=== PATIENT | male | born 1950 | race Caucasian/White ===

== ENCOUNTER 2018-02-01 14:49 | Observation (INO) | payer MEDICARE, OTHER ==
--- NOTE | 2018-02-01 14:56 | PDOC ---
Rapid Medical Evaluation Time Seen by Provider: 02/01/18 14:52 Medical Evaluation: Allergies Allergy/AdvReac Type Severity Reaction Status Date / Time No Known Allergies Allergy Verified 09/12/17 11:03 02/01/18 14:53 I have performed a brief in-person evaluation of this patient. The patient presents with a chief complaint of:R sided numbness/weakness w/ difficulty ambulating x 2 weeks. Thinks he had a stroke but decided not to come to ED for unclear reason. [facility] SW visited apt and decided to bring pt in. H /o thalamic hemorrhagic CVA in 2017, improved w/ CRYSTAL, HTN, ?ETOH abuse Pertinent physical exam findings:Tachy to 122 w/ ? R hand tremor (last etoh use 2 weeks ago per pt) I have ordered the following:labs/CT head The patient will proceed to the ED for further evaluation.
[2018-02-01 14:57] VITALS: BMI 24.2
[2018-02-01 16:04] LABS: BASO % 0.7 % (0-2.0); EOS % 1.6 % (0-4.5); HEMATOCRIT 34.7 % (35.4-49); LYMPH % 23.1 % (8-40); MCH 35.2 pg (25.7-33.7); MCHC 34.5 g/dl (32.0-35.9); MEAN CELL VOLUME 102.2 fl (80-96); MEAN PLT VOLUME 8.2 fl (7.5-11.1); MONO % 10.8 % (3.8-10.2); NEUT % 63.8 % (42.8-82.8); PLATELET COUNT 217 K/MM3 (134-434); RBC 3.39 M/mm3 (4.00-5.60); RDW 14.9 % (11.9-15.9); WHITE BLOOD COUNT 5.3 K/mm3 (4.0-10.0)
[2018-02-01 16:36] LABS: ALBUMIN 3.9 g/dl (3.4-5.0); ANION GAP 7 (8-16); BLOOD UREA NITROGEN 15 mg/dL (7-18); CALCIUM 9.3 mg/dL (8.5-10.1); CHLORIDE 98 mmol/L (98-107); CO2 28 mmol/L (21-32); CREATININE 1.1 mg/dL (0.7-1.3); GLUCOSE,RANDOM 116 mg/dL (74-106); POTASSIUM 4.4 mmol/L (3.5-5.1); SGOT/AST 47 U/L (15-37); SGPT/ALT 49 U/L (12-78); SODIUM 133 mmol/L (136-145)
[2018-02-01 16:40] LABS: ALK PHOS 77 U/L (45-117); BILIRUBIN,TOTAL 0.7 mg/dL (0.2-1.0); TOT PROT 6.9 g/dl (6.4-8.2)
--- NOTE | 2018-02-01 17:02 | PDOC ---
History of Present Illness - General Chief Complaint: Weakness Stated Complaint: RT SIDE NUMBNESS/WEAKNESS X2 WEEKS Time Seen by Provider: 02/01/18 14:52 - History of Present Illness Initial Comments: 67 year old male with PMH of HTN, EtoH, abuse and CVA (hemorrhagic left sided stroke in 09/23, s/p rehab with good r sided deficit recovery) prsenting with new right sided weakness s/p fall a few days prior. He is unclear on the history of his symptoms but believes that he experienced an acute right lower extremity weakness on Tuesday and fell to the floor. States that he has had resolving RU RL and facial numbness/ weakness that has been resolving since the incident. States that his last drink was three days prior and drinks every three days. Denies fevers, chills, nausea, vomiting, diarrhea, constipation, or other symptoms. 02/01/18 16:44 Past History - Past Medical History Allergies/Adverse Reactions: Allergies Allergy/AdvReac Type Severity Reaction Status Date / Time No Known Allergies Allergy Verified 02/01/18 14:57 Home Medications: Ambulatory Orders Aspirin 81 mg PO DAILY 02/01/18 COPD: No DVT: No HTN: Yes - Suicide/Smoking/Psychosocial Hx Smoking History: Never smoked Have you smoked in the past 12 months: No If you are a former smoker, when did you quit?: 1996 Information on smoking cessation initiated: No Hx Alcohol Use: No Drug/Substance Use Hx: No Substance Use Type: Alcohol Review of Systems - Review of Systems Constitutional: No: Chills, Diaphoresis, Fever HEENTM: No: Blurred Vision, Tearing Respiratory: No: Cough, Orthopnea, Shortness of Breath Cardiac (ROS): No: Chest Pain, Edema, Irregular Heart Rate ABD/GI: No: Diarrhea, Difficulty Swallowing, Nausea, Vomiting : No: Burning, Dysuria Integumentary: Yes: Lesions, Lumps Neurological: Yes: Numbness, Paresthesia, Weakness, Unsteady Gait. No: Headache *Physical Exam - Vital Signs Last Vital Signs Temp Pulse Resp BP Pulse Ox 98.2 F 122 H 18 144/95 99 02/01/18 14:53 02/01/18 14:53 02/01/18 14:53 02/01/18 14:53 02/01/18 14:53 - Physical Exam General Appearance: Yes: Nourished, Appropriately Dressed. No: Apparent Distress HEENT: positive: EOMI, RATNA, Normal ENT Inspection, Normal Voice Neck: positive: Trachea midline, Normal Thyroid, Supple. negative: Tender, Rigid Respiratory/Chest: positive: Lungs Clear, Normal Breath Sounds. negative: Chest Tender, Respiratory Distress, Accessory Muscle Use Cardiovascular: positive: Regular Rhythm, Tachycardia. negative: Regular Rate Gastrointestinal/Abdominal: positive: Normal Bowel Sounds, Flat, Soft. negative : Tender Musculoskeletal: positive: Other (4/5 strengith in rue and rle with slight paresthesias in same areas and right side of his face. ). negative: Normal Inspection, CVA Tenderness Extremity: positive: Normal Capillary Refill, Normal Inspection, Normal Range of Motion. negative: Tender Integumentary: positive: Normal Color, Dry, Other (small abrasions on face and UEs that are well healing.) Neurologic: positive: assembler body II-XII NML intact, Fully Oriented, Alert, Normal Mood/ Affect, Normal Response. negative: Motor Strength 5/5 (per above) ED Treatment Course - LABORATORY CBC & Chemistry Diagram: 02/01/18 15:46 02/01/18 15:46 - ADDITIONAL ORDERS Additional order review: 02/01/18 15:46 RBC 3.39 L MCV 102.2 H MCHC 34.5 RDW 14.9 D MPV 8.2 Neutrophils % 63.8 Lymphocytes % 23.1 D Monocytes % 10.8 H Eosinophils % 1.6 Basophils % 0.7 Medical Decision Making - Medical Decision Making 67 year old male with PMH of stroke presenting with new R sided deficits and CT positive for new but noted as "chronic" right capsular changes on CT. Spoke to Dr. Bridges and WINSTON Gonzalez so will admit under obs tele for further cardiac and neurology workup. This is likely related to poor BP control and/ or arrythmia given tachycardia in ED. Repeat vitals were BP 134/ 75 and HR 85 without intervention. 02/01/18 18:03 *DC/Admit/Observation/Transfer Diagnosis at time of Disposition: Neurological deficit present - Discharge Dispostion Disposition: HOME Condition at time of disposition: Stable Admit: Yes - Referrals - Patient Instructions - Post Discharge Activity
[2018-02-01] MEDS ORDERED: DIPHTH,PERTUSS(ACELL),TET 0.5 ML DISP.SYRIN IM ONE (17:23)
[2018-02-01] MEDS ORDERED: THIAMINE HCL 200 MG/2 ML VIAL IVPB ONE (17:24)
[2018-02-01] MEDS ORDERED: FOLIC ACID 1 MG TABLET (FP) PO ONE (17:24)
[2018-02-01] MEDS ORDERED: MULTIVITAMINS (DAILY MVI) TABLET (FP) PO ONE (17:24)
[2018-02-01] MEDS ORDERED: SODIUM CHLORIDE 0.9% 1000 ML INFUS.BAG IV ONE (17:26)
--- NOTE | 2018-02-01 17:37 | PDOC ---
Attending Attestation - HPI HPI: 02/01/18 17:54 The patient is a 68 year old male who arrived via EMS, with a significant past medical history of HTN, who presents to the emergency department complaining of right sided weakness since this morning. He notes that he began to have right sided weakness that included his face, right upper extremity and right lower extremity. He reports that he fell on 01/29/18 on his right side but decided against coming to the hospital at that time. He notes that he took 2 aspirin tablets today prior to presentation. The patient notes that he has been noncompliant with his medications for the past couple of months. He also reports shortness of breath associated with his chief complaint, specially when he walks short distances. The patient denies chest pain, headache or dizziness. Denies fever, chills, nausea, vomiting, diarrhea and constipation. Denies dysuria, frequency, urgency and hematuria. Allergies: None Past surgical history: None reported Social History: Alcohol use (3 times a week). No tobacco or drug use reported. - Physicial Exam PE: 02/01/18 17:55 GENERAL: Awake, alert, and fully oriented, in no acute distress HEAD: No signs of trauma, normocephalic, atraumatic EYES: PERRLA, EOMI, sclera anicteric, conjunctiva clear ENT: Auricles normal inspection, hearing grossly normal, nares patent, oropharynx clear without exudates. Moist mucosa NECK: Normal ROM, supple, no lymphadenopathy, JVD, or masses LUNGS: No distress, speaks full sentences, clear to auscultation bilaterally HEART: Regular rate and rhythm, normal S1 and S2, no murmurs, rubs or gallops, peripheral pulses normal and equal bilaterally. ABDOMEN: Soft, nontender, normoactive bowel sounds. No guarding, no rebound. No masses EXTREMITIES : Normal inspection, Normal range of motion, no edema. No clubbing or cyanosis. NEUROLOGICAL: Cranial nerves II through XII grossly intact. Normal speech. (+) Decreased sensation on the right side, 4/5 strength. SKIN: Warm, Dry, normal turgor, no rashes or lesions noted <Davian Russ - Last Filed: 02/01/18 17:54> - Resident Resident Name: Soraida Lehman - ED Attending Attestation I have performed the following: I have examined & evaluated the patient, The case was reviewed & discussed with the resident, I agree w/resident's findings & plan, Exceptions are as noted - Medical Decision Making 02/01/18 17:30 I, Dr. Allie Richards, DO, attest that this document has been prepared under my direction and personally reviewed by me in its entirety. I further attest, that it accurately reflects all work, treatment, procedures and medical decision -making performed by me. 02/01/18 17:30 a/p: 67yo male with R sided weakness that started tuesday-tuesday night -states he got up from the couch and fell onto his R side - had acute onset of R sided weakness which has since improved -pt c/o paresthesias and numbness to R face, R arm, R leg -pt denies cp -C/o SOB -noncompliant with meds -admits to ETOH use 3x/week -admits to tobacco use -hx of hemorrhagic cva in september 2017 with R sided weakness at that time -concern for cva again -will obtain ct head/c spine -xray R shoulder -abrasion to R forehead, R leg - will update tetanus -will obtain cxr -pt is mildly tremulous - will give thiamine/folate/mvi -will electronic device monitor -will discuss with neurology -will most likely admit for neuro workup/cva workup -?alcohol use/noncompliance/tremors from etoh withdrawal 02/01/18 21:16 will keep pt in obs for neuro eval accepted by [facility] <Allie Richards - Last Filed: 02/01/18 21:17> Heart Score/ECG Review - ECG Intrepretation Comment:: 02/01/18 17:39 sinus tach at 105, poor r wave progression, nl axis, abnl ekg <Allie Richards - Last Filed: 02/01/18 21:17>
[2018-02-01] MEDS ORDERED: THIAMINE HCL 200 MG/2 ML VIAL ONE (19:09)
[2018-02-01 19:20] LABS: INR 0.96 (0.82-1.09); PROTHROMBIN TIME (PATIENT) 10.9 SEC (9.98-11.88)
[2018-02-01 19:23] LABS: ACTIVATED PTT 31.9 SECONDS (26.9-34.4)
[2018-02-01] MEDS ORDERED: FOLIC ACID 1 MG TABLET (FP) ONE (19:33)
[2018-02-01] MEDS ORDERED: GABAPENTIN 300 MG CAPSULE (FP) PO ONE (20:30)
--- NOTE | 2018-02-01 20:43 | HP ---
CHIEF COMPLAINT: right sided weakness PCP: none HISTORY OF PRESENT ILLNESS: This is a 67 year old male with a past medical history of hemorrhagic CVA 2016, HTN, ETOH who presented with worsened right sided weakness that began after a fall on Tuesday. He states that the weakness has gotten better since Tuesday but is persistent. He also reports some numbness and tingling in his right hand. Pt had a recent hemorrhagic CVA in September with Right titi s/p rehab at [facility] and then [facility]. He states that the hemiparesis had resolved after rehab but has now returned since his fall ER course was notable for: (1) CT head without acute findings (2) CT c spine with spondylosis and stenosis (3) Recent Travel: pt denies PAST MEDICAL HISTORY: HTN, EtOH, CVA PAST SURGICAL HISTORY: tonsillectomy and B/L hernia repairs as a child Social History: Smoking: quit 22 years ago, previous 1.5ppd Alcohol: 3x/week, 1 pint, last drank tuesday or Tuesday Drugs: pt denies Family History: mother age 84, CVA father in his 60s, murder 1 sister in her 50s, [place] Allergies No Known Allergies Allergy (Verified 02/01/18 14:57) HOME MEDICATIONS: 3 Medication Instructions Recorded Aspirin 81 mg PO DAILY 02/01/18 REVIEW OF SYSTEMS CONSTITUTIONAL: Absent: fever, chills, diaphoresis, generalized weakness, malaise, loss of appetite, weight change HEENT: Absent: rhinorrhea, nasal congestion, throat pain, throat swelling, difficulty swallowing, mouth swelling, ear pain, eye pain, visual changes CARDIOVASCULAR: Absent: chest pain, syncope, palpitations, irregular heart rate, lightheadedness , peripheral edema RESPIRATORY: Absent: cough, shortness of breath, dyspnea with exertion, orthopnea, wheezing, stridor, hemoptysis GASTROINTESTINAL: Absent: abdominal pain, abdominal distension, nausea, vomiting, diarrhea, constipation, melena, hematochezia GENITOURINARY: Absent: dysuria, frequency, urgency, hesitancy, hematuria, flank pain, genital pain MUSCULOSKELETAL: Absent: myalgia, arthralgia, joint swelling, back pain, neck pain SKIN: Absent: rash, itching, pallor HEMATOLOGIC/IMMUNOLOGIC: Absent: easy bleeding, easy bruising, lymphadenopathy, frequent infections ENDOCRINE: Absent: unexplained weight gain, unexplained weight loss, heat intolerance, cold intolerance NEUROLOGIC: Present: focal weakness or paresthesias Absent: headache, dizziness, unsteady gait, seizure, mental status changes, bladder or bowel incontinence PSYCHIATRIC: Absent: anxiety, depression, suicidal or homicidal ideation, hallucinations. PHYSICAL EXAMINATION Vital Signs - 24 hr 3 02/01/18 14:53 Temperature 98.2 F Pulse Rate 122 H Respiratory 18 Rate Blood Pressure 144/95 O2 Sat by Pulse 99 Oximetry (%) GENERAL: Awake, alert, and fully oriented, in no acute distress. HEAD: Normal with no signs of trauma. EYES: Pupils equal, round and reactive to light, extraocular movements intact, sclera anicteric, conjunctiva clear. No lid lag. EARS, NOSE, THROAT: Ears normal, nares patent, oropharynx clear without exudates. Moist mucous membranes. NECK: Normal range of motion, supple without lymphadenopathy, JVD, or masses. LUNGS: Breath sounds equal, clear to auscultation bilaterally. No wheezes, and no crackles. No accessory muscle use. HEART: Regular rate and rhythm, normal S1 and S2 without murmur, rub or gallop. ABDOMEN: Soft, nontender, not distended, normoactive bowel sounds, no guarding, no rebound, no masses. No hepatomegaly or splenomegaly. MUSCULOSKELETAL: Normal range of motion at all joints. No bony deformities or tenderness. No CVA tenderness. 4+/5 muscle strength RUE, RLE; 5/5 left UPPER EXTREMITIES: 2+ pulses, warm, well-perfused. No cyanosis. No clubbing. No peripheral edema. LOWER EXTREMITIES: 2+ pulses, warm, well-perfused. No calf tenderness. No peripheral edema. NEUROLOGICAL: Cranial nerves II-XII intact. Normal speech. Gait not observed. PSYCHIATRIC: Cooperative. Good eye contact. Appropriate mood and affect. SKIN: Warm, dry, normal turgor, no rashes or lesions noted, normal capillary refill. Laboratory Results - last 24 hr 3 02/01/18 02/01/18 02/01/18 15:30 15:46 15:46 WBC 5.3 D RBC 3.39 L Hgb 12.0 D Hct 34.7 L D MCV 102.2 H MCH 35.2 H MCHC 34.5 RDW 14.9 D Plt Count 217 MPV 8.2 Neutrophils % 63.8 Lymphocytes % 23.1 D Monocytes % 10.8 H Eosinophils % 1.6 Basophils % 0.7 PT with INR 10.90 INR 0.96 PTT (Actin FS) 31.9 Sodium 133 L Potassium 4.4 Chloride 98 Carbon Dioxide 28 Anion Gap 7 L BUN 15 D Creatinine 1.1 Creat Clearance w eGFR > 60 Random Glucose 116 H D Calcium 9.3 Magnesium 2.0 Total Bilirubin 0.7 D AST 47 H D ALT 49 D Alkaline Phosphatase 77 D Creatine Kinase 118 Troponin I < 0.02 Total Protein 6.9 Albumin 3.9 Alcohol, Quantitative < 5.[address] cervical spine IMPRESSION: No evidence of acute fracture in the cervical spine. Grade 1 anterolisthesis of C3 on C4, C4 on C5 and C5 on C6 as above are presumably chronic and degenerative. Please correlate clinically. Cervical spondylosis with multilevel neural foraminal narrowing and mild canal stenosis as described above. Reported By: Armen Braga DO 02/01/181946 CT head Impression: Moderate atrophy. Linear-like chronic infarct involving the right external capsule. Otherwise, there is no gross evidence of acute intracranial pathology. Correlate clinically to determine further evaluation and follow-up. Reported By: Celia Ruiz MD 02/01/18 1625 XRAy shoulder/CXR PA/Lat IMPRESSION: 1. No evidence of acute infiltrate, pulmonary vascular congestion or pleural effusion. 2. No evidence of acute fracture dislocation in the right shoulder. 3. Shallow right glenoid fossa with moderate to severe right glenohumeral arthropathy with possible glenohumeral joint effusion. Reported By: Armen Braga DO 02/01/18 191 ECG Sinus tachycardia vent rate 105, QTC [address]/T changes ASSESSMENT/PLAN: 67yM with PMH Hemorrhagic CVA 09/2017, HTN, and EtOH presented to the ED with right sided weakness. Right sided weakness r/o CVA/TIA - CT with no acute changes - MRI brain pending - CT cspine with spondylosis and canal stenosis, ? etiology - neurology consult - will restart lipitor Right shoulder pain - pt reports neurontin has helped in the past, will order 300 BID HTN - pt off his lipitor and lisinopril because he ran out and didn't have a pcp. - restart lisinopril daily. DVTPPX - heparin deferred as anticipated lOS<48h, reassess if stays longer FEN - tolerating po - BMP in am - regular diet as tolerated. Dispo: pt admitted for further observation. Visit type - Emergency Visit Emergency Visit: Yes ED Registration Date: 02/01/18 Care time: The patient presented to the Emergency Department on the above date and was hospitalized for further evaluation of their emergent condition. - New Patient This patient is new to me today: Yes Date on this admission: 02/01/18 - Critical Care Critical Care patient: No Hospitalist Screening - Colonoscopy Questionnaire Colonoscopy Questionnaire: Colonoscopy Questionnaire - Patient: 50 - 75 years old and never had a screening colonoscopy: Unknown History of colon or rectal polyps, or CA: No History of IBD, Crohn's disease or UC: No History of abdominal radiation therapy as a child: No - Relative: 1 with colon or rectal CA, or polyps at age 60 or younger: No Colon or rectal CA diagnosed at age 45 or younger: No Multiple relatives with colon or rectal CA: No - Outcome: Screening Result: Negative Screen
[2018-02-01] MEDS ORDERED: GABAPENTIN 100 MG CAPSULE (FP) ONE (21:53)
[2018-02-01] MEDS ORDERED: ATORVASTATIN CA 10 MG TABLET (FP) PO SCH (22:00)
[2018-02-01] MEDS ORDERED: INSULIN SLIDING SCALE (NOVOLOG) 1 VIAL SQ SCH (22:00)
[2018-02-01 22:05] LABS: URINE APPEARANCE CLEAR; URINE BILIRUBIN NEGATIVE (<2.0 mg/dL); URINE BLOOD NEGATIVE (NEGATIVE); URINE COLOR YELLOW; URINE GLUCOSE (UA) NEGATIVE (NEGATIVE); URINE KETONE NEGATIVE (NEGATIVE); URINE LEUK ESTERASE NEGATIVE (NEGATIVE); URINE NITRITE NEGATIVE (NEGATIVE); URINE PROTEIN NEGATIVE (NEGATIVE); URINE UROBILINOGEN NEGATIVE mg/dL (0.2-1.0)
[2018-02-02] MEDS: INSULIN SLIDING SCALE (NOVOLOG) 1 VIAL SQ SCH ×2 (07:44→13:01)
[2018-02-02 08:47] LABS: BASO % 0.9 % (0-2.0); EOS % 2.5 % (0-4.5); HEMATOCRIT 33.8 % (35.4-49); HEMOGLOBIN 11.4 GM/dL (11.7-16.9); LYMPH % 30.9 % (8-40); MCH 34.8 pg (25.7-33.7); MCHC 33.7 g/dl (32.0-35.9); MEAN CELL VOLUME 103.5 fl (80-96); MEAN PLT VOLUME 8.5 fl (7.5-11.1); NEUT % 53.7 % (42.8-82.8); PLATELET COUNT 227 K/MM3 (134-434); RBC 3.26 M/mm3 (4.00-5.60); RDW 14.8 % (11.9-15.9); WHITE BLOOD COUNT 5.7 K/mm3 (4.0-10.0)
[2018-02-02 09:10] LABS: ANION GAP 4 (8-16); BLOOD UREA NITROGEN 16 mg/dL (7-18); CHLORIDE 102 mmol/L (98-107); CO2 30 mmol/L (21-32); GLUCOSE,RANDOM 81 mg/dL (74-106); PHOSPHOROUS 4.5 mg/dL (2.5-4.9); POTASSIUM 5.2 mmol/L (3.5-5.1); SODIUM 136 mmol/L (136-145)
[2018-02-02] MEDS ORDERED: THIAMINE HCL 100 MG TABLET (FP) PO SCH (10:00)
[2018-02-02] MEDS ORDERED: LISINOPRIL 10 MG TABLET (FP) PO SCH (10:00)
[2018-02-02] MEDS ORDERED: MULTIVITAMINS (DAILY MVI) TABLET (FP) PO SCH (10:00)
[2018-02-02] MEDS ORDERED: GABAPENTIN 300 MG CAPSULE (FP) PO SCH (10:00)
--- NOTE | 2018-02-02 11:03 | CON.NEURO ---
Consult Consult Specialty:: NEUROLOGY-ENDER ARNDT Reason for Consultation:: Right arm/leg weakness - History of Present Illness History of Present Illness: This is a 67 year old male with a past medical history of hemorrhagic CVA 2016, HTN, ETOH who presented with worsened right sided weakness that began after a fall on Tuesday. He states that the weakness has gotten better since Tuesday but is persistent. He also reports some numbness and tingling in his right hand. Pt had a recent hemorrhagic CVA in September with Right titi s/p rehab at [place] and then [facility]. He states that the hemiparesis had resolved after rehab but has now returned since his fall. pt. informs me he was not taking his antihypertensive meds and taking excessive motrin at home, last night noted to be tachycardiac.He was not taking any antiplatelet agent at home. Now reports he feels better, that he has gained strength in right arm since last night. ER course was notable for: (1) CT head without acute findings (2) CT c spine with spondylosis and stenosis3) Recent Travel: pt denies PAST MEDICAL HISTORY: HTN, EtOH, CVA - Past Medical History Cardio/Vascular: Yes: HTN - Alcohol/Substance Use Hx Alcohol Use: No - Smoking History Smoking history: Never smoked Have you smoked in the past 12 months: No If you are a former smoker, when did you quit?: 1996 Home Medications - Allergies Allergies/Adverse Reactions: Allergies Allergy/AdvReac Type Severity Reaction Status Date / Time No Known Allergies Allergy Verified 02/01/18 14:57 - Home Medications Home Medications: Ambulatory Orders Aspirin 81 mg PO DAILY 02/01/18 Physical Exam-Neuro Vital Signs: Vital Signs Temperature 98.3 F 02/02/18 10:32 Pulse Rate 83 02/02/18 10:32 Respiratory Rate 18 02/02/18 10:32 Blood Pressure 138/89 02/02/18 10:32 O2 Sat by Pulse Oximetry (%) 98 02/02/18 10:32 Labs: CBC, BMP 02/02/18 07:50 02/02/18 07:50 INR, PTT INR 0.96 (0.82-1.09) 02/01/18 18:54 - Neuro Exam Eyes: Yes: PERRL Speech: WNL Dominant Hand: Right Mini Mental Exam: Normal Cranial Nerves II-XII Intact: No (old right central facial broop) Gag: Present DTR's: 1+ Right Bicep, 1+ Right Tricep, 1+ Right Brachioradialis, 1+ Right Achilles, 2+ Left Bicep, 2+ Left Tricep, 2+ Left Brachioradialis, 2+ Left Achilles Motor Strength: 4/5: Right Arm (Distally 4/5 proximally 5-/5, + drift RUE-pt. reports this is better than l;ast night), 5/5: Left Arm, Left Leg, Right Leg (+ reverse drift in right leg) Gait: Other (able to ambulate steadily with slight right hemiparetic gait.) Imaging - Results Cat Scan: Report Reviewed MRI: Report Reviewed, Image Reviewed (Hyperintense DWI signal in medial precentral gyrus, vance radiata, post.int.capsule-possibly subacute infarct +/ - wallerian degeneration along corticospinal tracts, old lacunar infarcts in left vance and right capsular region.) Assessment/Plan Pt. with recurrence of right arm/leg weakness in the setting of old left sided hemorrhagic infarcts , not compliant with antihypertensives, now improved, had tachycardia last night. He does not appear to have had a new stroke given MRI with minimal hyperintensity upon diffusion imaging.He is poorly compliant with medical follow up. Given his age, tachycardia and ocurrence of hemorrhagic infarcts he may have a cardio embolic source. Suggest: 1) Pt. may be d/jacqui home on ASA unless arrhythmia is a concern. 2) As an outpt. he will require a MRA(I will arrange) and cardiac w/u/ cardiology f/u to look for embolic sources-please refer him to Dr. matthieu Valle's office. 3) Neurology f/u at my office, pt. has my#. Thank you, Juli Bridges MD
--- NOTE | 2018-02-02 11:41 | EKG ---
Test Reason : Blood Pressure : / mmHG Vent. Rate : 105 BPM Atrial Rate : 105 BPM P-R Int : 180 ms QRS Dur : 082 ms QT Int : 334 ms P-R-T Axes : 074 -09 073 degrees QTc Int : 441 ms SINUS TACHYCARDIA POSSIBLE LEFT ATRIAL ENLARGEMENT BORDERLINE ECG WHEN COMPARED WITH ECG OF 12-SEP-2017 11:12, VENT. RATE HAS INCREASED BY 39 BPM Confirmed by ALISSA DALEY MD ([id number]) on 02/02/2018 11:41:00 AM Referred By: Confirmed By:ALISSA DALEY MD
[2018-02-02 16:14] LABS: ANION GAP 11 (8-16); BLOOD UREA NITROGEN 15 mg/dL (7-18); CALCIUM 9.1 mg/dL (8.5-10.1); CHLORIDE 100 mmol/L (98-107); CO2 29 mmol/L (21-32); GLUCOSE,RANDOM 151 mg/dL (74-106); SODIUM 140 mmol/L (136-145)
[2018-02-02] MEDS ORDERED: ASPIRIN 81 MG CHEWABLE TABLETS PO ONE (16:46)
--- NOTE | 2018-02-02 16:47 | DS ---
Physical Examination Vital Signs: Vital Signs Temperature 98.0 F 02/02/18 15:00 Pulse Rate 69 02/02/18 15:00 Respiratory Rate 18 02/02/18 15:00 Blood Pressure 109/68 02/02/18 15:00 O2 Sat by Pulse Oximetry (%) 97 02/02/18 15:00 Labs: CBC, BMP 02/02/18 07:50 02/02/18 15:00 Discharge Summary Reason For Visit: NEUROLOGICAL DEFICIT PRESENT Current Active Problems Neurological deficit present (Acute) Condition: Improved - Instructions Diet, Activity, Other Instructions: Please return to the ED with new, persistent, or worsening symptoms. Please follow-up with providers as indicated. Continue taking Lipitor, Gabapentin, and Lisinopril. New medications: - Aspirin - Multivitamin Referrals: Jeremiah Bridges MD [Staff Physician] - (Please follow-up with Dr. Bridges within 2-3 days to schedule an outpatient brain MRA and for further management of your weakness) Serafin Valle MD [Staff Physician] - (Please follow-up with Dr. Valle for outpatient cardiac testing within 1 week. ) Disposition: HOME - Home Medications Comprehensive Discharge Medication List: Ambulatory Orders Aspirin 81 mg PO DAILY 02/01/18 Atorvastatin Ca [Lipitor] 10 mg PO HS #30 tablet 02/02/18 Gabapentin [Neurontin -] 300 mg PO BID #60 capsule 02/02/18 Lisinopril [Prinivil] 10 mg PO DAILY #30 tablet 02/02/18 Multivitamins [Multivit ([facility] Form[facility])] 1 tab PO DAILY #30 tab 02/02/18
[2018-02-02 17:56] VITALS: BP 110/68; PULSE 80; TEMP 98.6
--- NOTE | 2018-02-03 14:17 | PDOC ---
NIH Stroke Scale - Last Known Well Date/Time & Onset Date Last Known Well: 01/27/18 - Initial Evaluation Level of consciousness: Alert Ask patient the month and their age: Answers both correctly Ask patient to open & close eyes; make fist and let go: Obeys both correctly Best gaze (horizontal eye movement): Normal Visual field testing: No visual field loss Facial paresis (Show teeth/raise eyebrows/close eyes tight): Normal symmetrical movement Motor Function: Left Arm: Normal Motor Function: Right Arm: Normal (extends arm 90 (or 45) degrees for 10 seconds without drift Motor Function: Left Leg: Normal (extends leg 30 degrees for 5 seconds without drift) Motor Function: Right Leg: Normal (extends leg 30 degrees for 5 seconds without drift) Limb Ataxia: No ataxia Sensory(Use pinprick test arms,legs,trunk,face/side to side): Normal Best language (Describe picture, name items, read sentences): No Aphasia Dysarthria (read several words): Normal articulation Extinction and Inattention: No abnormality - Total Score NIH Stroke Scale Score: 0
== END 2018-02-02 17:55 | disposition home or self-care (01) ==
LOC: JER 14:49 → JERBED 18:08
PROVIDERS: ADMIT Internal Medicine; ATTEND Registered Nurse
PROC: 3E033GC Introduction of Other Therapeutic Substance into Peripheral Vein, Percutaneous Approach (ICD-10-PCS; principal; 2018-02-01)
PROC: 3E0337Z Introduction of Electrolytic and Water Balance Substance into Peripheral Vein, Percutaneous Approach (ICD-10-PCS; 2018-02-01)
PROC: 3E0234Z Introduction of Serum, Toxoid and Vaccine into Muscle, Percutaneous Approach (ICD-10-PCS; 2018-02-01)
DX: R29.818 Other symptoms and signs involving the nervous system (principal); M62.81 Muscle weakness (generalized); M25.511 Pain in right shoulder; R00.0 Tachycardia, unspecified; I10 Essential (primary) hypertension; F10.10 Alcohol abuse, uncomplicated; Z86.73 Personal history of transient ischemic attack (TIA), and cerebral infarction without residual deficits; Z79.82 Long term (current) use of aspirin; Z91.19 Patient's noncompliance with other medical treatment and regimen; W18.39XA Other fall on same level, initial encounter; Z91.81 History of falling; Y93.9 Activity, unspecified; Y92.9 Unspecified place or not applicable
CPT/HCPCS: 36415; 70450-TC; 70551-TC; 71046-TC-FY; 72125-TC; 73030-TC-RT-FY; 80048; 80053; 80307; 81003; 82550; 82607; 82746; 82962; 83735; 84100; 84484; 85025; 85610; 85730; 90715; 93005; 93010; 99285-25; G0378; J7030

== ENCOUNTER 2021-03-18 15:38 | Emergency (ER) | payer SELFPAY ==
[2021-03-18] MEDS ORDERED: DIPHTH,PERTUSS(ACELL),TET 0.5 ML DISP.SYRIN IM ONE ×2 (16:39→17:24)
[2021-03-18] MEDS ORDERED: THIAMINE HCL 200 MG/2 ML VIAL IVPB ONE (17:12)
[2021-03-18] MEDS ORDERED: FOLIC ACID 1 MG TABLET (FP) PO ONE (17:12)
[2021-03-18] MEDS ORDERED: LIDOCAINE HCL 1%, 10 MG/ML (50 mL VIAL) SQ ONE (17:19)
[2021-03-18 17:31] VITALS: BMI 21.5
[2021-03-18] MEDS ORDERED: chlordiazePOXIDE HCL 25 MG CAPSULE PO ONE ×2 (18:00→19:57)
[2021-03-18] MEDS ORDERED: chlordiazePOXIDE HCL 25 MG CAPSULE ONE ×2 (19:07→20:26)
[2021-03-18] MEDS ORDERED: THIAMINE HCL 200 MG/2 ML VIAL ONE (19:07)
[2021-03-18] MEDS ORDERED: FOLIC ACID 1 MG TABLET (FP) ONE (19:07)
[2021-03-18] MEDS ORDERED: morphine CARPU-JECT 4 MG/1 ML DISP.SYRIN IVPUSH ONE (19:57)
[2021-03-18 19:58] LABS: BASO % 0.5 % (0-2.0); EOS % 0.1 % (0-4.5); HEMATOCRIT 34.9 % (35.4-49); HEMOGLOBIN 11.5 GM/dL (11.7-16.9); LYMPH % 7.6 % (8-40); MCH 34.3 pg (25.7-33.7); MEAN CELL VOLUME 103.9 fl (80-96); MEAN PLT VOLUME 9.2 fl (7.5-11.1); MONO % 2.6 % (3.8-10.2); NEUT % 89.2 % (42.8-82.8); PLATELET COUNT 208 K/MM3 (134-434); RBC 3.36 M/mm3 (4.00-5.60); RDW 16.3 % (11.9-15.9); WHITE BLOOD COUNT 15.1 K/mm3 (4.0-10.0)
[2021-03-18] MEDS ORDERED: CEFAZOLIN 1 GM in DEXTROSE 5%-WATER - 50 ML IVPB ONE (19:58)
[2021-03-18 20:05] LABS: INR 0.93 (0.83-1.09); PROTHROMBIN TIME (PATIENT) 11.5 SEC (9.7-13.0)
[2021-03-18 20:08] LABS: ACTIVATED PTT 31.1 SECONDS (25.2-36.5)
[2021-03-18 20:23] LABS: CHLORIDE 105 mmol/L (98-107); SODIUM 143 mmol/L (136-145)
[2021-03-18 20:26] LABS: ALBUMIN 3.8 g/dl (3.4-5.0); ANION GAP 16 MMOL/L (8-16); BLOOD UREA NITROGEN 10.5 mg/dL (7-18); CALCIUM 8.5 mg/dL (8.5-10.1); CO2 23 mmol/L (21-32); GLUCOSE,RANDOM 80 mg/dL (74-106); MAGNESIUM 1.3 mg/dL (1.8-2.4)
[2021-03-18] MEDS ORDERED: MORPHINE SULFATE 2 MG/ML VIAL ONE (20:27)
[2021-03-18] MEDS ORDERED: CEFAZOLIN 1 GM/D5W 1 GM/50 ML BAG ONE (20:27)
[2021-03-18 20:29] LABS: SGOT/AST 141 U/L (15-37); SGPT/ALT 105 U/L (13-61)
[2021-03-18 20:30] LABS: CREATININE 0.7 mg/dL (0.55-1.3)
[2021-03-18 20:31] LABS: TOT PROT 6.7 g/dl (6.4-8.2)
[2021-03-18 20:32] LABS: ALK PHOS 91 U/L (45-117)
[2021-03-18 21:18] VITALS: BP 144/77; PULSE 89; TEMP 98.2
== END 2021-03-18 21:10 | disposition short-term general hospital (02) ==
LOC: JER 15:38
PROC: 0JQ10ZZ Repair Face Subcutaneous Tissue and Fascia, Open Approach (ICD-10-PCS; principal; 2021-03-18)
PROC: 3E03329 Introduction of Other Anti-infective into Peripheral Vein, Percutaneous Approach (ICD-10-PCS; 2021-03-18)
PROC: 3E0234Z Introduction of Serum, Toxoid and Vaccine into Muscle, Percutaneous Approach (ICD-10-PCS; 2021-03-18)
PROC: 3E033NZ Introduction of Analgesics, Hypnotics, Sedatives into Peripheral Vein, Percutaneous Approach (ICD-10-PCS; 2021-03-18)
PROC: 3E033GC Introduction of Other Therapeutic Substance into Peripheral Vein, Percutaneous Approach (ICD-10-PCS; 2021-03-18)
DX: S02.609B Fracture of mandible, unspecified, initial encounter for open fracture (principal); S01.81XA Laceration without foreign body of other part of head, initial encounter
CPT/HCPCS: 36415; 70450-TC; 70486-TC; 72125-TC; 80053; 82140; 83735; 84484; 85025; 85610; 85730; 86850; 86900; 86901; 90715; 93005; 93010; 99285-25